=== PATIENT | female | born 2000 | race Caucasian/White ===

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

== ENCOUNTER → 2018-01-11 | Outpatient (REF) | payer BC ==
[2018-01-11 16:53] LABS: CHLAMYDIA DNA AMPLIFICATION NEGATIVE (NEGATIVE); GC DNA AMPLIFICATION NEGATIVE (NEGATIVE)
== END ==
LOC: M SFHCWAGY 15:16
DX: N76.0 Acute vaginitis (principal); B96.89 Other specified bacterial agents as the cause of diseases classified elsewhere; Z11.3 Encounter for screening for infections with a predominantly sexual mode of transmission
CPT/HCPCS: 87591

== ENCOUNTER → 2018-01-26 | Outpatient (REF) | payer BC ==
[2018-01-26 22:58] LABS: CHLAMYDIA DNA AMPLIFICATION NEGATIVE (NEGATIVE); GC DNA AMPLIFICATION NEGATIVE (NEGATIVE)
== END ==
LOC: M LAB REF 09:23
DX: Z11.3 Encounter for screening for infections with a predominantly sexual mode of transmission (principal)

== ENCOUNTER 2018-01-27 11:17 | Emergency (ER) | payer BC ==
[2018-01-27] MEDS: NORCO, ANEXSIA 5/325MG TABLET (HYDROcodone/ACETAMINOPHEN) PO (12:30)
[2018-01-27] MEDS: KETOROLAC TROMETHAMINE 10 MG TAB PO (12:30)
[2018-01-27 13:01] LABS: KETONE, URINE AUTO RFX NEGATIVE (NEGATIVE); MUCUS, URINE RFX SMALL (NEGATIVE); NITRITE, URINE AUTO RFX NEGATIVE (NEGATIVE); RBC, URINE AUTO RFX 2 /HPF (0-3); SPECIFIC GRAVITY UR AUTO RFX 1.025 (1.002-1.035); SQUAM EPITHELIAL CELL UR AURFX 15 /HPF (0-6); WBC, URINE AUTO RFX 7 /HPF (0-3)
[2018-01-27 13:36] LABS: LEUKOCYTE ESTERASE UR AUTO RFX 1+ (NEGATIVE)
[2018-01-27 14:17] LABS: CHLAMYDIA DNA AMPLIFICATION NEGATIVE (NEGATIVE); GC DNA AMPLIFICATION NEGATIVE (NEGATIVE)
[2018-01-27] MEDS ORDERED: LIDOCAINE 1% MDV 20ML VIAL As Ordered (14:47)
[2018-01-27] MEDS: metroNIDAZOLE (FLAGYL) 500 MG TAB PO (14:59)
[2018-01-27] MEDS: AZITHROMYCIN 250 MG TAB PO (14:59)
[2018-01-27] MEDS: cefTRIAXone SOD 250 MG VIAL (J0696) IM (15:00)
== END 2018-01-27 15:41 | disposition home or self-care (01) ==
LOC: M ED 11:17
DX: N73.9 Female pelvic inflammatory disease, unspecified (principal); B37.3 Candidiasis of vulva and vagina; Z79.899 Other long term (current) drug therapy
CPT/HCPCS: J0696

== ENCOUNTER → 2018-02-10 | Outpatient (REF) | payer BC | LOC: M LAB REF 17:12 | DX: R30.0 Dysuria (principal) | CPT/HCPCS: 87086 ==

== ENCOUNTER → 2018-05-01 | Outpatient (CLI) | payer BC ==
[2018-05-01 20:21] LABS: CHLAMYDIA DNA AMPLIFICATION NEGATIVE (NEGATIVE); GC DNA AMPLIFICATION NEGATIVE (NEGATIVE)
[2018-05-03 11:34] LABS: HEPATITIS A ANTIBODY IGM NEGATIVE (NEGATIVE); HEPATITIS B CORE ANTIBODY IGM NEGATIVE (NEGATIVE); HEPATITIS B SURFACE ANTIGEN NEGATIVE (NEGATIVE); HIV 1&2 SCREEN CENTAUR NEGATIVE (NEGATIVE)
[2018-05-03 11:34] LABS: HEPATITIS C VIRUS ABY INDEX < 0.0 INDEX (<0.8)
== END ==
LOC: M SMT 14:51
DX: Z11.3 Encounter for screening for infections with a predominantly sexual mode of transmission (principal)
CPT/HCPCS: 87340

== ENCOUNTER → 2018-07-14 | Outpatient (CLI) | payer BC ==
[~2018-07-14] MED LIST changes: -CYSTO-CONRAY II 17.2% 250ML VIAL (Q9958) As Ordered; +DIFL150T PO; +FLAG500T PO; +TRI-1TAB20
[2018-07-14 20:46] LABS: CHLAMYDIA DNA AMPLIFICATION NEGATIVE (NEGATIVE); GC DNA AMPLIFICATION NEGATIVE (NEGATIVE)
[2018-07-17 11:37] LABS: HEPATITIS A ANTIBODY IGM NEGATIVE (NEGATIVE); HEPATITIS B CORE ANTIBODY IGM NEGATIVE (NEGATIVE); HEPATITIS B SURFACE ANTIGEN NEGATIVE (NEGATIVE); HEPATITIS C VIRUS ABY INDEX 0.1 INDEX (<0.8); HIV 1&2 SCREEN CENTAUR NEGATIVE (NEGATIVE)
== END ==
LOC: M SMT 15:08
PROVIDERS: ATTEND Advanced Practice Midwife
DX: Z11.3 Encounter for screening for infections with a predominantly sexual mode of transmission (principal)

== ENCOUNTER → 2018-12-15 | Outpatient (REF) | payer BC | LOC: M LAB REF 19:02 | PROVIDERS: ATTEND Physician Assistant Medical | DX: N39.0 Urinary tract infection, site not specified (principal) ==

== ENCOUNTER → 2018-12-19 | Outpatient (REF) | payer BC | LOC: M LAB REF 12:21 | PROVIDERS: ATTEND Physician Assistant Medical | DX: N76.0 Acute vaginitis (principal) ==

== ENCOUNTER 2019-02-16 14:02 | Emergency (ER) | payer BC ==
[~2019-02-16] VITALS: Ht 154.9 cm; Wt 59.1 kg
[2019-02-16 14:46] LABS: BASO # 0.1 10^3/uL (0.0-0.2); BASO % 0.7 % (0.0-1.0); EOS # 0.1 10^3/uL (0.0-0.50); HEMATOCRIT 36.9 % (36.0-47.0); LYMPH # 1.9 10^3/uL (1.5-6.5); LYMPH % 27.1 % (24.0-44.0); MEAN CORPUSCULAR HEMOGLOBIN 31.9 pg (27.0-33.0); MEAN CORPUSCULAR HGB CONC 35.2 g/dl (32.0-36.5); MEAN CORPUSCULAR VOLUME 90.7 fl (80.0-96.0); MONO # 0.6 10^3/uL (0.0-0.8); MONO % 8.3 % (0.0-5.0); NEUTROPHILS # 4.4 10^3/uL (1.8-7.7); NEUTROPHILS % 62.6 % (36.0-66.0); PLATELET COUNT, AUTOMATED 350 10^3/uL (150-450); RED BLOOD COUNT 4.07 10^6/uL (4.00-5.40); WHITE BLOOD COUNT 7.1 10^3/uL (4.0-10.0)
--- NOTE | 2019-02-16 16:18 | REP ---
HISTORY: Vaginal bleeding. Transvesical and transvaginal imaging was obtained. The uterus measures 7.8 x 4.3 x 5.3 cm. Within the uterus, there is an anechoic structure with increased echo surrounding it consistent with a decidual reaction. No yolk sac or echogenic material is seen in the gestational sac that would be considered consistent with a pole, however, based on the mean gestational sac diameter, the gestation is 5 weeks 5 days. The ovaries are normal in size, shape and echo pattern. The right ovary measures 3.3 x 2.3 x 2.7 cm and the left measures 3.6 x 2.5 x 1.9 cm. A probable corpus luteum cyst is seen in the left ovary measuring 1.9 cm. There is a trace amount of free fluid in the pelvis probably physiologic. IMPRESSION: Early OB ultrasound as described above. Electronically Signed by Derick Hoffman DO 02/16/2019 04:32 P
[2019-02-16 17:02] VITALS: BP 116/76
== END 2019-02-16 17:01 | disposition home or self-care (01) ==
LOC: M ED 14:02
DX: O20.9 Hemorrhage in early pregnancy, unspecified (principal); Z3A.01 Less than 8 weeks gestation of pregnancy

== ENCOUNTER → 2019-07-24 | Outpatient (REF) | payer BC ==
[2019-07-24 19:28] LABS: CHLAMYDIA DNA AMPLIFICATION NEGATIVE (NEGATIVE); GC DNA AMPLIFICATION NEGATIVE (NEGATIVE)
== END ==
LOC: M LAB REF 16:46
PROVIDERS: ATTEND Nurse Practitioner Family
DX: N76.0 Acute vaginitis (principal)

== ENCOUNTER → 2020-09-16 | Outpatient (REF) | payer BC ==
[2020-09-16 17:13] LABS: FREE T4 0.99 NG/DL (0.76-1.46); THYROID STIMULATING HORMONE 0.674 uIU/ML (0.358-3.740)
== END ==
LOC: M SFHCADAM 14:53
PROVIDERS: ATTEND Physician Assistant Medical
DX: F53.0 Postpartum depression (principal)

== ENCOUNTER → 2020-12-24 | Outpatient (CLI) | payer SELFPAY | LOC: M LABSMTC 12:55 | PROVIDERS: ATTEND Pediatrics | DX: Z20.822 Contact with and (suspected) exposure to COVID-19 (principal) ==

== ENCOUNTER → 2021-01-02 | Outpatient (CLI) | payer BC | LOC: M LABSMTC 09:37 | PROVIDERS: ATTEND Pediatrics | DX: Z20.822 Contact with and (suspected) exposure to COVID-19 (principal) ==

== ENCOUNTER → 2021-01-08 | Outpatient (CLI) | payer SELFPAY | LOC: M LABSMTC 10:39 | PROVIDERS: ATTEND Pediatrics | DX: Z20.822 Contact with and (suspected) exposure to COVID-19 (principal) ==

== ENCOUNTER → 2021-01-16 | Outpatient (CLI) | payer SELFPAY | LOC: M LABSMTC 10:16 | PROVIDERS: ATTEND Pediatrics | DX: Z20.822 Contact with and (suspected) exposure to COVID-19 (principal) ==

== ENCOUNTER → 2023-01-27 | Outpatient (REF) | payer BC, MEDICAID ==
[2023-01-27 12:58] LABS: BASO # 0.1 10^3/uL (0.0-0.2); EOS # 0.2 10^3/uL (0.0-0.5); EOS % 2.4 % (0.0-3.0); HEMATOCRIT 40.4 % (36.0-47.0); HEMOGLOBIN 13.3 g/dl (12.0-15.5); LYMPH # 2.1 10^3/uL (1.5-5.0); LYMPH % 31.5 % (24.0-44.0); MEAN CORPUSCULAR HEMOGLOBIN 29.7 pg (27.0-33.0); MEAN CORPUSCULAR HGB CONC 32.9 g/dl (32.0-36.5); MEAN CORPUSCULAR VOLUME 90.2 fl (80.0-96.0); MONO # 0.5 10^3/uL (0.0-0.8); MONO % 7.2 % (2.0-8.0); NEUTROPHILS # 3.9 10^3/uL (1.5-8.5); NEUTROPHILS % 57.8 % (36.0-66.0); PLATELET COUNT, AUTOMATED 380 10^3/uL (150-450); RED BLOOD COUNT 4.48 10^6/uL (4.00-5.40); WHITE BLOOD COUNT 6.7 10^3/uL (4.0-10.0)
[2023-01-27 13:12] LABS: INR 0.96
[2023-01-27 13:13] LABS: PARTIAL THROMBOPLASTIN TIME 29.2 SECONDS (24.8-34.2)
[2023-01-27 13:33] LABS: PERCENT SATURATION 27.8 % (13.2-45.0)
[2023-01-27 13:35] LABS: FERRITIN 19.4 NG/ML (7.3-270.7)
== END ==
LOC: M SFHCADAM 11:19
PROVIDERS: ATTEND Physician Assistant Medical
DX: R23.3 Spontaneous ecchymoses (principal)

== ENCOUNTER → 2023-10-04 | Outpatient (CLI) | payer BC, MEDICAID | LOC: M WHC 10:15 | PROVIDERS: ATTEND Physician Assistant | DX: N63.11 Unspecified lump in the right breast, upper outer quadrant (principal) ==

== ENCOUNTER → 2024-08-30 | Outpatient (CLI) | payer OTHER | LOC: M PLALAB 14:04 | PROVIDERS: ATTEND Nurse Practitioner Family | DX: Z31.430 Encounter of female for testing for genetic disease carrier status for procreative management (principal) ==

== ENCOUNTER → 2024-10-11 | Outpatient (CLI) | payer OTHER | LOC: M RAD 13:47 | PROVIDERS: ATTEND Advanced Practice Midwife | DX: O34.211 Maternal care for low transverse scar from previous cesarean delivery (principal); Z3A.19 19 weeks gestation of pregnancy ==

== ENCOUNTER → 2025-01-08 | Outpatient (CLI) | payer OTHER | LOC: M RAD 13:13 | PROVIDERS: ATTEND Obstetrics & Gynecology | DX: Q60.2 Renal agenesis, unspecified (principal) ==

== ENCOUNTER → 2025-01-15 | Outpatient (CLI) | payer OTHER | LOC: M WHC 13:07 | PROVIDERS: ATTEND Advanced Practice Midwife | DX: N39.0 Urinary tract infection, site not specified (principal) ==

== ENCOUNTER → 2025-01-15 | Outpatient (CLI) | payer OTHER | LOC: M RAD 11:03 | PROVIDERS: ATTEND Obstetrics & Gynecology | DX: Q60.2 Renal agenesis, unspecified (principal) ==

== ENCOUNTER → 2025-01-22 | Outpatient (CLI) | payer OTHER | LOC: M RAD 11:22 | PROVIDERS: ATTEND Obstetrics & Gynecology | DX: Q60.2 Renal agenesis, unspecified (principal) ==

== ENCOUNTER → 2025-01-29 | Outpatient (CLI) | payer OTHER | LOC: M RAD 11:08 | PROVIDERS: ATTEND Obstetrics & Gynecology | DX: O28.3 Abnormal ultrasonic finding on antenatal screening of mother (principal); Z3A.35 35 weeks gestation of pregnancy ==

== ENCOUNTER → 2025-01-31 | Outpatient (REF) | payer OTHER | LOC: M SFHCWAGY 12:47 | PROVIDERS: ATTEND Obstetrics & Gynecology | DX: Z36.89 Encounter for other specified antenatal screening (principal); Z3A.35 35 weeks gestation of pregnancy ==

== ENCOUNTER 2025-02-04 11:13 | Outpatient (CLI) | payer OTHER ==
[~2025-02-04] VITALS: Ht 154.9 cm; Wt 83.9 kg
[2025-02-04] MEDS ORDERED: FERR325T3 PO (11:28)
[2025-02-04] MEDS ORDERED: PRENTAB9 PO (11:28)
[2025-02-04] MEDS ORDERED: HOME MED LIST COMPLETE! XX SCH (11:30)
[2025-02-04 11:32] VITALS: BP 113/72
[2025-02-04 15:50] LABS: KETONE, URINE AUTO RFX 2+ mg/dL (NEGATIVE); LEUKOCYTE ESTERASE UR AUTO RFX NEGATIVE (NEGATIVE); MUCUS, URINE RFX SMALL (NEGATIVE); NITRITE, URINE AUTO RFX NEGATIVE (NEGATIVE); RBC, URINE AUTO RFX 1 /HPF (0-3); SQUAM EPITHELIAL CELL UR AURFX 9 /HPF (0-6); WBC, URINE AUTO RFX 1 /HPF (0-3)
== END 2025-02-04 16:45 | disposition home or self-care (01) ==
LOC: M LDO 11:13
PROVIDERS: ATTEND Obstetrics & Gynecology
DX: O36.8130 Decreased fetal movements, third trimester, not applicable or unspecified (principal); O26.23 Pregnancy care for patient with recurrent pregnancy loss, third trimester; O13.3 Gestational [pregnancy-induced] hypertension without significant proteinuria, third trimester; O34.219 Maternal care for unspecified type scar from previous cesarean delivery; O99.343 Other mental disorders complicating pregnancy, third trimester; F41.8 Other specified anxiety disorders; Z3A.36 36 weeks gestation of pregnancy
CPT/HCPCS: 59025; 76815; 76819; 76820; 81001; G0463

== ENCOUNTER → 2025-02-06 | Outpatient (CLI) | payer OTHER ==
[~2025-02-06] MED LIST changes: +COLA100C5 PO; +ECOT81TA5 PO; +FERR325T3 PO; +IBUP80TA PO; +PERCOCET PO; +PRENTAB9 PO
== END ==
LOC: M WHC 11:55
PROVIDERS: ATTEND Obstetrics & Gynecology
DX: O35.8XX0 Maternal care for other (suspected) fetal abnormality and damage, not applicable or unspecified (principal); Z3A.36 36 weeks gestation of pregnancy

== ENCOUNTER 2025-02-12 05:24 | Inpatient (IN) | payer OTHER ==
[~2025-02-12] VITALS: Ht 154.9 cm; Wt 84.6 kg
[2025-02-12] VITALS (10 sets, daily range): BP systolic 108–128; BP diastolic 58–71; TEMP 96.9; O2SAT 95–100
[~2025-02-12 05:24] MED LIST changes: -COLA100C5 PO; -IBUP80TA PO; -PERCOCET PO
[2025-02-12 06:41] LABS: PLATELET COUNT, AUTOMATED 282 10^3/uL (150-450)
[2025-02-12] MEDS: LR 1,000 ML IV SCH ×2 (07:08→10:08)
[2025-02-12] MEDS: LACTATED RINGER'S 1000 ML IV STA (07:08)
[2025-02-12] MEDS ORDERED: MORPHINE PRES-FREE INJ 10 MG/10 ML VIAL As Ordered ONE (07:12)
[2025-02-12] MEDS ORDERED: ONDANSETRON 4MG 2ML VIAL As Ordered ONE (07:13)
[2025-02-12] MEDS ORDERED: dexAMETHasone 4 MG/ML 1 ML VIAL As Ordered ONE (07:13)
[2025-02-12] MEDS ORDERED: ACETAMINOPHEN 1000MG/100ML IV BAG As Ordered ONE (07:13)
[2025-02-12] MEDS ORDERED: KETOROLAC 30 MG/ML 1 ML VIAL As Ordered ONE (07:13)
[2025-02-12] MEDS ORDERED: OXYTOCIN 30UNITS IN 0.9% NaCl 500ML IV BAG As Ordered ONE (07:13)
[2025-02-12] MEDS ORDERED: PHENYLephrine 500MCG 5ML (100MCG/ML) SYRINGE As Ordered ONE (07:22)
[2025-02-12] MEDS: ceFAZolin SODIUM 2 GM in DEXTROSE 5% (D5W) ADV/MINI-BAG 50 ML IV ONE (07:34)
[2025-02-12] MEDS: BICITRA 30 ML SOLN UDC PO ONE (07:40)
[2025-02-12 07:47] LABS: HEPATITIS C VIRUS ABY INDEX < 0.02 INDEX (<0.8)
[2025-02-12 08:46] LABS: CORD GAS ABE A -3.2; CORD GAS ABE V -2.9; CORD GAS HCO3 A 24.6 MMOL/L; CORD GAS HCO3 V 22.2 MMOL/L; CORD GAS O2 SAT A 57.3 %; CORD GAS O2 SAT V 78.4 %; CORD GAS PCO2 A 55.6 mmHg; CORD GAS PCO2 V 39.8 mmHg; CORD GAS PH A 7.263 UNITS; CORD GAS PH V 7.364 UNITS; CORD GAS PO2 A 23.2 mmHg; CORD GAS PO2 V 33.0 mmHg; CORD GAS SBC A 20.9 MMOL/L; CORD GAS SBC V 21.6 MMOL/L; CORD GAS TCO2 A 26.3 MMOL/L; CORD GAS TCO2 V 23.4 MMOL/L
[2025-02-12] MEDS ORDERED: HYDROMORPHONE HCL 0.5 MG/0.5 ML SYRINGE IV PRN (09:15)
[2025-02-12] MEDS ORDERED: **NOTE PATIENT COMMENT** MISC XX SCH (09:15)
[2025-02-12] MEDS ORDERED: NALOXONE INJ 0.4 MG/1 ML VIAL IV PRN ×2 (09:15)
[2025-02-12] MEDS ORDERED: MEPERIDINE 25 MG/ML 1 ML VIAL IV PRN (09:15)
[2025-02-12] MEDS ORDERED: diphenhydrAMINE 50 MG/ML VIAL IV PRN (09:15)
[2025-02-12] MEDS ORDERED: PERCOCET 5MG/325MG TAB PO PRN ×2 (09:20)
[2025-02-12] MEDS ORDERED: ANUSOL HC CREAM 30 GM TOP PRN (09:20)
[2025-02-12] MEDS ORDERED: MORPHINE 4 MG/ML 1 ML VIAL IV PRN (09:20)
[2025-02-12] MEDS ORDERED: METHYLERGONOVINE MALEATE 0.2 MG/ML 1 ML VIAL IM PRN (09:20)
[2025-02-12] MEDS ORDERED: SIMETHICONE 80MG CHEW TAB PO PRN (09:20)
[2025-02-12] MEDS ORDERED: ONDANSETRON 4MG 2ML VIAL IV PRN ×2 (09:20)
[2025-02-12] MEDS ORDERED: RHOGAM 300MCG (1500IU) INJ IM SCH (09:20)
[2025-02-12] MEDS ORDERED: CALCIUM CARBONATE 500 MG CHEW U/D PO PRN (09:20)
[2025-02-12] MEDS ORDERED: PERCOCET PO (09:27)
[2025-02-12] MEDS ORDERED: COLA100C5 PO (09:27)
[2025-02-12] MEDS ORDERED: IBUP80TA PO (09:29)
[2025-02-12] MEDS: OXYTOCIN DRIP 30 UNITS in IV 1 EA IV SCH (09:55)
[2025-02-12] MEDS: ONDANSETRON 4MG 2ML VIAL IV PRN (10:12)
[2025-02-12] MEDS: SLF 3 ML SYR IV SCH (11:31)
[2025-02-12] MEDS ORDERED: HOME MED LIST COMPLETE! XX SCH (12:00)
[2025-02-12] MEDS: KETOROLAC 30 MG/ML 1 ML VIAL IV SCH (15:43)
[2025-02-12] MEDS: DOCUSATE SODIUM 100 MG CAPSULE PO SCH (21:08)
[2025-02-13 02:00] VITALS: BP 123/78; O2SAT 100
[2025-02-13 06:11] VITALS: BP 103/60; O2SAT 99
[2025-02-13] MEDS: PRENATAL VITAMINS CHEWABLE TABLET PO SCH (07:52)
[2025-02-13 07:58] LABS: PLATELET COUNT, AUTOMATED 239 10^3/uL (150-450)
[2025-02-13 10:00] VITALS: BP 144/81; O2SAT 96
[2025-02-13] MEDS: IBUPROFEN 800 MG TAB PO SCH (11:15)
[2025-02-13] MEDS: ACETAMINOPHEN 500 MG TAB PO PRN (13:23)
[2025-02-13 14:00] VITALS: BP 116/66; O2SAT 99
[2025-02-13 18:00] VITALS: BP 129/87; O2SAT 100
[2025-02-13 22:00] VITALS: BP 126/73; O2SAT 98
[2025-02-14 02:00] VITALS: BP 143/94; O2SAT 98
[2025-02-14 06:00] VITALS: BP 130/87; O2SAT 98
[2025-02-14] MEDS: MEASLES,MUMPS,RUBELLA VACCINE INJ (MMR-II) SC.IMMUN ONE (09:00)
== END 2025-02-14 13:20 | disposition home or self-care (01) | DRG 540 ==
LOC: M LDI 05:24 → M OBS 11:15
PROVIDERS: ADMIT Specialist; ATTEND Obstetrics & Gynecology
PROC: 0UB70ZZ Excision of Bilateral Fallopian Tubes, Open Approach (ICD-10-PCS; 2025-02-12)
PROC: 10D00Z1 Extraction of Products of Conception, Low, Open Approach (ICD-10-PCS; principal; 2025-02-12 07:50)
DX: O34.211 Maternal care for low transverse scar from previous cesarean delivery (principal); Z37.0 Single live birth; Z3A.37 37 weeks gestation of pregnancy; Z30.2 Encounter for sterilization; O69.89X0 Labor and delivery complicated by other cord complications, not applicable or unspecified; O35.EXX0 Maternal care for other (suspected) fetal abnormality and damage, fetal genitourinary anomalies, not applicable or unspecified